=== PATIENT | female | born 1985 | race Caucasian/White ===

== ENCOUNTER 2018-01-01 16:24 | Emergency (ER) | payer OTHER ==
[~2018-01-01] VITALS: Ht 162.6 cm; Wt 46.5 kg
[~2018-01-01 16:24] MED LIST: BCP; FLAGYL500 MG; OXYCODONE HCL10 MG PO
[2018-01-01] MEDS ORDERED: CATAPRES0.1 MG PO (18:59)
[2018-01-01] MEDS ORDERED: ZOFRAN ODT4 MG PO (18:59)
[2018-01-01 19:27] VITALS: BP 127/94
== END 2018-01-01 19:31 | disposition home or self-care (01) ==
LOC: EME 16:24
DX: F11.23 Opioid dependence with withdrawal (principal); F17.200 Nicotine dependence, unspecified, uncomplicated; Z91.040 Latex allergy status
CPT/HCPCS: 90839; 93005; 99281; 99284